=== PATIENT | female | born 1990 | race Caucasian/White ===

== ENCOUNTER 2017-06-06 01:30 | Emergency (ER) | payer BC ==
[2017-06-06] MEDS ORDERED: Magnesium Sulfate 2 GM/100 ML BAG ONE (02:41)
[2017-06-06] MEDS ORDERED: diphenhydrAMINE 50 MG/ML VIAL ONE (02:41)
[2017-06-06] MEDS ORDERED: Metoclopramide HCl 10 MG/2 ML VIAL ONE (02:41)
[2017-06-06 02:56] LABS: Pregnancy Test - Urine (BHCG) Negative (Negative); Pregu Control Background? CLEAR/WHITE (CLR/WHITE); Pregu Control Bar Appear? YES (CONTROL BAR); Specific Gravity 1.025 (1.002-1.036)
== END 2017-06-06 05:09 | disposition home or self-care (01) ==
LOC: ERS 01:30
DX: G43.009 Migraine without aura, not intractable, without status migrainosus (principal)
CPT/HCPCS: 81025; 96365; 96368; 96375; J1200; J2765; J3475

== ENCOUNTER 2017-06-13 15:59 | Outpatient (CLI) | payer BC | END 2017-06-13 16:00 | disposition home or self-care (01) | LOC: BICCT 15:59 | PROVIDERS: ATTEND Family Medicine | DX: J34.89 Other specified disorders of nose and nasal sinuses (principal); R51 Headache | CPT/HCPCS: 70450 ==

== ENCOUNTER 2017-07-25 11:04 | Outpatient (CLI) | payer BC | END 2017-07-25 11:05 | disposition home or self-care (01) | LOC: BICMRI 11:04 | PROVIDERS: ATTEND Psychiatry & Neurology Neurology | DX: G50.1 Atypical facial pain (principal) | CPT/HCPCS: 70551 ==

== ENCOUNTER 2017-08-11 15:38 | Outpatient (CLI) | payer BC ==
[~2017-08-11 15:38] MED LIST: Gadobenate Dimeglumine 529 MG/1 ML (20ML VIAL) ONE
--- NOTE | 2017-08-12 09:36 | MRI ---
CONTRAST ENHANCED MRI PITUITARY: Date: 08-11-17 Comparison: MRI brain without contrast, 07-25-17 Technique: Dynamic coronal as well as sagittal and post contrast enhanced coronal images through the pituitary gland obtained. Unfortunately, precontrast enhanced T1 and T2 high resolution coronal and sagittal images not availab le through the pituitary. It may be worthwhile to consider repeat noncontrast enhanced high resolutio n images through the pituitary if clinically indicated or for follow up imaging. FINDINGS: There are two lesions seen within the pituitary, a slightly larger right sided lesion just to the rig ht of midline and a more posterior slightly inferior. The right sided lesion has greatest diameter of approximately 5.5 mm while the more inferior lower lesion has a diameter of approximately 5 mm. The lesions do not fill in on the delayed contrast enhanced pituitary evaluation images. On the right adeline ed lesion there may be a possible solid and cystic component. Differential diagnosis for the lesion o n the right may represent a possibly Rathke's cleft cyst and/or possible pituitary microadenoma. The lesion on the left may represent a pituitary microadenoma. Correlate with hormonal evaluation as well as high resolution noncontrast enhanced coronal and sagittal images through the pituitary as well as follow up pituitary imaging. IMPRESSION: One left sided and one right sided pituitary lesion present. Each between 5 and 6 mm in diameter. The lesion on the right is slightly larger. Differential diagnosis includes Rathke's cleft cyst and/or p ituitary microadenomas. POS: [facility]
== END 2017-08-11 15:39 | disposition home or self-care (01) ==
LOC: SCSMRI 15:38
PROVIDERS: ATTEND Psychiatry & Neurology Neurology
DX: E23.7 Disorder of pituitary gland, unspecified (principal); E23.6 Other disorders of pituitary gland
CPT/HCPCS: 70552; A9579

== ENCOUNTER 2017-12-19 15:19 | Outpatient (CLI) | payer BC | END 2017-12-19 15:20 | disposition home or self-care (01) | LOC: BICULT 15:19 | PROVIDERS: ATTEND Family Medicine | DX: Z34.82 Encounter for supervision of other normal pregnancy, second trimester (principal); O32.1XX0 Maternal care for breech presentation, not applicable or unspecified; Z3A.22 22 weeks gestation of pregnancy | CPT/HCPCS: 76805 ==

== ENCOUNTER 2018-01-22 13:48 | Outpatient (CLI) | payer BC ==
--- NOTE | 2018-01-22 17:35 | ULT ---
OB ULTRASOUND: Date: 01-22-18 Provided Clinical History: anatomy. FINDINGS: Comparison is made with the examination dated 12-19-17. Single live intrauterine gestation is documented in breach presentation with heart rate of 131 beats/ minute. Placenta is anteriorly located without evidence for previa on this examination. The amniotic fluid index is 21. Estimated gestational age based on today's examination is 27 weeks 3 days, which c orrelates well with the prior study. Estimated weight is 1,003 grams, +/- 148 grams. BIOMETRY: BPD 7.1 cm 28 weeks 4 days HC 26.0 cm 28 weeks 2 days AC 22.8 cm 27 weeks 1 day FL 4.76 cm 25 weeks 6 days IMPRESSION: 1. No evidence for placenta previa. 2. Single live intrauterine gestation in breech presentation with estimated age of 27 weeks 3 d ays. POS: [facility]
== END 2018-01-22 13:49 | disposition home or self-care (01) ==
LOC: SCSULT 13:48
PROVIDERS: ATTEND Family Medicine
DX: O32.1XX0 Maternal care for breech presentation, not applicable or unspecified (principal); Z3A.27 27 weeks gestation of pregnancy
CPT/HCPCS: 76805

== ENCOUNTER 2018-04-16 21:15 | Inpatient (IN) | payer BC ==
[2018-04-16] MEDS ORDERED: Lidocaine 1% (PF) 30 ML VIAL SC PRN (21:55)
[2018-04-16] MEDS ORDERED: HYDROcodone/Acetaminophen 5/325 mg Tablet PO PRN ×2 (21:55)
[2018-04-16] MEDS ORDERED: Butorphanol Tartrate 1 MG/ML VIAL SLOW IVP PRN (21:55)
[2018-04-16] MEDS ORDERED: Ondansetron PF 4 MG/2 ML Vial IVP PRN (21:55)
[2018-04-16] MEDS ORDERED: NS / Oxytocin 40 units/1000ml 1,000 ML IV PRN (21:55)
[2018-04-16] MEDS ORDERED: Ibuprofen 800 MG TAB PO PRN (21:55)
[2018-04-16] MEDS ORDERED: Penicillin G Potassium 5 MILL.UNITS VIAL ONE (21:55)
[2018-04-16] MEDS ORDERED: Penicillin G Potassium 5 MILL.UNITS in Sodium Chloride 0.9% 100 ML IVPB SCH (22:00)
[2018-04-16] MEDS ORDERED: Lactated Ringer's 1,000 ML IV SCH ×2 (22:00)
[2018-04-16 22:15] LABS: Hemoglobin 11.8 g/dL (12.0-16.0); Mean Corpuscular HGB CONC 34.6 g/dL (32.0-36.0); Mean Corpuscular Volume 86.7 fL (78.0-98.0); Mean Platelet Volume 7.7 fL (7.4-10.4); Platelet Count 286 thou/uL (130-400); RBC Distribution Width 12.5 % (11.5-14.5); Red Blood Cell (RBC) Count 3.94 mill/uL (4.20-5.40); White Blood Cell (WBC) Count 9.7 thou/uL (4.8-10.8)
[2018-04-16 22:18] VITALS: BMI 35.9
[2018-04-16 22:54] LABS: Syphilis Antibody Nonreactive (Nonreactive); Syphilis Antibody Index 0.05 S/CO (<1.00 Non-Reactive)
[2018-04-16 23:38] LABS: HBSAg Index 0.19 S/CO (0-0.99); Hep B Surf Ag Non-Reactive S/CO (NonReactive)
[2018-04-17] MEDS ORDERED: Penicillin G 2.5 MILL.units 2.5 MILL.UNITS in Premix Bag 1 BAG IVPB SCH (02:00)
[2018-04-17] MEDS ORDERED: NS / Oxytocin 40 units/1000ml 1,000 ML ONE (02:44)
[2018-04-17] MEDS ORDERED: Lidocaine 1% (PF) 30 ML VIAL ONE (02:44)
--- NOTE | 2018-04-17 04:23 | DN ---
DATE OF PROCEDURE: 04/17/2018 The patient delivered a male on 04/17/2018 at 0349 hours by an uncomplicated term spontaneous vaginal delivery. Apgars were 9 and 9, and estimated blood loss is about 200 mL. Quantitative blood loss pending at the time of dictation. Placenta delivered spontaneously followed by a Pitocin infusion. There were no lacerations. Count was correct. Delivering physician is Dr. Edil Pena. Mother and baby were stable in the room in the immediate . Job ID: [id number]
[2018-04-17] MEDS ORDERED: NS / Oxytocin 40 units/1000ml 1,000 ML IV SCH (05:37)
[2018-04-17] MEDS ORDERED: Lanolin Ointment 7 GM TUBE TOP PRN (05:37)
[2018-04-17] MEDS ORDERED: Adacel (T-DAP) 0.5 ML SYRINGE IM ONE (05:37)
[2018-04-17] MEDS ORDERED: Milk Of Magnesia 30 ML UDCUP PO PRN (05:37)
[2018-04-17] MEDS ORDERED: Ondansetron PF 4 MG/2 ML Vial IVP PRN (05:37)
[2018-04-17] MEDS ORDERED: Bisacodyl 10 MG SUPP PR PRN (05:37)
[2018-04-17] MEDS: Docusate Calcium (SURFAK) 240 MG CAP PO SCH ×2 (08:50→21:42)
[2018-04-17] MEDS: Prenatal Vitamin 1 TAB PO SCH (08:50)
[2018-04-17] MEDS: Ibuprofen 800 MG TAB PO SCH ×3 (08:50→21:42)
[2018-04-17 09:34] LABS: Hemoglobin 10.9 g/dL (12.0-16.0)
[2018-04-17] MEDS: Ferrous Sulfate 325 MG TAB PO SCH ×2 (15:40→15:41)
[2018-04-17] MEDS ORDERED: Mag-Al 1200 mg/1200 mg/30 ML UDCUP PO PRN (17:01)
[2018-04-17] MEDS ORDERED: HYDROcodone/Acetaminophen 5/325 mg Tablet PO PRN ×2 (20:46→20:47)
--- NOTE | 2018-04-17 22:11 | PDOC.PP ---
Post Progress Note Post Day #: 0 from thia AM at 0345 or so Subjective: Doing well, some afterpains, no active VB PO intake tolerated: yes Flatus: yes Ambulation: yes Vital Signs (12 hours) Temp Pulse Resp BP Pulse Ox 04/17/18 20:04 98.1 F 89 20 105/57 L 98 04/17/18 16:00 98.1 F 80 20 101/58 L 98 04/17/18 11:32 98.1 F 78 20 108/55 L 97 Weight Weight 190 lb - Physical Examination Cardiovascular: no m/r/g Respiratory: clear to auscultation bilaterally Abdominal: + bowel sounds, lochia, no distention Extremities: negative homans (B) Neurological: no gross focal deficits Psychiatric: A&Ox3, normal affect Result Diagrams: 04/17/18 09:18 Additional Labs: Post Labs Blood Type O POSITIVE 04/16/18 22:04 Hep Bs Antigen Non-Reactive S/CO (NonReactive) 04/16/18 22:04 (1) Vaginal delivery Code(s): O80 - ENCOUNTER FOR FULL-TERM UNCOMPLICATED DELIVERY Status: Acute - Assessment/Plan PPD0 to 1, will be 24 hours PP tomorrow at 0345. She desires [facility] to home in the afternoon if able. No acute issues now. has Dr Destini kirby follow up . Plan on [facility] home tomorrow afternoon
--- NOTE | 2018-04-18 05:17 | PDOC.PP ---
Post Progress Note Post Day #: 1-2; DISCHARGE NOTE Subjective: Doing well PO intake tolerated: yes Flatus: yes Ambulation: yes Vital Signs (12 hours) Temp Pulse Resp BP Pulse Ox 04/18/18 00:43 97.7 F 76 20 108/55 L 04/17/18 20:04 98.1 F 89 20 105/57 L 98 Weight Weight 190 lb - Physical Examination General: NAD Cardiovascular: no m/r/g, RRR Respiratory: clear to auscultation bilaterally Abdominal: + bowel sounds, lochia, no distention, appropriately TTP Neurological: no gross focal deficits Psychiatric: A&Ox3, normal affect Result Diagrams: 04/17/18 09:18 Additional Labs: Post Labs Blood Type O POSITIVE 04/16/18 22:04 Hep Bs Antigen Non-Reactive S/CO (NonReactive) 04/16/18 22:04 (1) Vaginal delivery Code(s): O80 - ENCOUNTER FOR FULL-TERM UNCOMPLICATED DELIVERY Status: Acute - Assessment/Plan PPD 1 to 2; desires [facility] home today in the afternoon. Final DX: Vaginal delivery Routine care
[2018-04-18] MEDS: Ibuprofen 800 MG TAB PO SCH ×2 (06:59→14:49)
[2018-04-18 08:23] VITALS: BP 109/59; TEMP 98
[2018-04-18] MEDS: Ferrous Sulfate 325 MG TAB PO SCH ×2 (09:38→10:06)
[2018-04-18] MEDS: Docusate Calcium (SURFAK) 240 MG CAP PO SCH (09:38)
[2018-04-18] MEDS: Prenatal Vitamin 1 TAB PO SCH (09:38)
== END 2018-04-18 16:15 | disposition home or self-care (01) | DRG 807 ==
LOC: L&D/OP 21:15 → L&D 21:51 → 3SE 04-17 10:45
PROVIDERS: ADMIT Obstetrics & Gynecology; ATTEND Obstetrics & Gynecology
PROC: 10E0XZZ Delivery of Products of Conception, External Approach (ICD-10-PCS; principal; 2018-04-17)
DX: O98.813 Other maternal infectious and parasitic diseases complicating pregnancy, third trimester (principal); Z37.0 Single live birth; Z3A.38 38 weeks gestation of pregnancy; B95.1 Streptococcus, group B, as the cause of diseases classified elsewhere; Z91.041 Radiographic dye allergy status
CPT/HCPCS: 36415; 85014; 85018; 85027; 86780; 86850; 86900; 86901; 87340; 99285; J2001; J2405; J2540

== ENCOUNTER 2020-07-10 08:04 | Outpatient (CLI) | payer BC | END 2020-07-10 08:05 | disposition home or self-care (01) | LOC: BICULT 08:04 | PROVIDERS: ATTEND Urology | DX: N20.0 Calculus of kidney (principal) | CPT/HCPCS: 76770 ==

== ENCOUNTER 2022-06-06 12:03 | Outpatient (CLI) | payer BC | END 2022-06-06 12:04 | disposition home or self-care (01) | LOC: BICCT 12:03 → CT 12:04 | PROVIDERS: ATTEND Family Medicine | DX: R10.9 Unspecified abdominal pain (principal); N20.0 Calculus of kidney | CPT/HCPCS: 74176 ==